=== PATIENT | female | born 1985 | race Two or more races ===

== ENCOUNTER 2024-07-03 15:06 | Emergency (ER) | payer MEDICAID, OTHER ==
[~2024-07-03] VITALS: Ht 152.4 cm; Wt 76.2 kg
[2024-07-03 15:39] VITALS: BP 139/91; PULSE 89; RESP 18; TEMP 98.4; O2SAT 96
--- NOTE | 2024-07-03 15:50 | ED.PDOC ---
SOB-HPI HPI Comments Portions of this chart may have been created with an modal fluency direct voice recognition software. Occasional wrong-word or "sound-alike" substitutions may have occurred due to the inherent limitations of voice recognition software. Please read the chart carefully and recognize, using context, where these substitutions have occurred. Pleasant 38-year-old female presents with a chief complaint of URI symptoms x4 days She complains of productive cough with yellow phlegm, intermittent headache sore throat and intermittent chills. Able to get minimal relief with [id number] cough and cold medications Started Also with Therapies tried COVID-19 exposure: None that they know of COVID testing People at home Denies fevers chills night sweats unintentional weight loss Denies persistent chest pain, shortness of breath, leg swelling Denies history of asthma nor any breathing conditions Denies history of pneumonia Denies recent international travel Chief Complaint: Flu like Time Seen by MD: 15:28 Reviewed notes: Nurses Notes, Medications, Allergies Information Source: Patient Mode of Arrival: Ambulatory X-Ray, Labs, Meds, VS Vital Signs Date Time Temp Pulse Resp B/P (MAP) Pulse Ox O2 Delivery O2 Flow Rate FiO2 07/03/24 15:39 98.4 89 18 139/91 (107) 96 98.4 07/03/24 15:39 89 18 96 Room Air 07/03/24 15:18 98.4 89 18 139/91 (107) 96 Current Medications Medications (Trade) Dose Ordered Sig/Angelica Route Start Time Stop Time Status Last Admin Dexamethasone Sodium Phosphate (Decadron Injection) 10 mg ONCE ONCE IM 07/03/24 16:45 07/03/24 16:46 DC 07/03/24 16:56 Promethazine HCl/ Codeine (Phenergan W/ Codeine) 5 ml ONCE ONCE PO 07/03/24 16:45 07/03/24 16:46 DC 07/03/24 16:52 Departure 1 Departure Time of Disposition: 17:17 Impression: Primary Impression: Bronchitis Disposition: 01 HOME / SELF CARE / HOMELESS Condition: Stable e-Prescriptions Acetaminophen (Acetaminophen) 500 Mg Tab 500 MG PO Q6HPRN PRN for 10 Days, #40 TAB 0 Refills Prov: ARDEN MARTINEZ NP 07/03/24 Promethazine-Dm (Promethazine Dm 6.25-15 mg/5Ml) 1 Muna Muna 5 ML PO TIDPRN PRN for 10 Days, #150 ML 0 Refills Prov: ARDEN MARTINEZ NP 07/03/24 Azithromycin (Azithromycin) 250 Mg Tab 250 MG PO DAILY MDD 500 for 5 Days, #6 TAB 0 Refills 2 TABLETS ORALLY ON DAY ONE, THEN 1 TABLET ORALLY DAILY FOR 4 DAYS Prov: ARDEN MARTINEZ NP 07/03/24 Discharged With: Self ARDEN MARTINEZ [employer] Jul 03, 2024 15:50
--- NOTE | 2024-07-03 16:18 | DVH ---
EXAM: XY CHEST TWO VIEWS ROUTINE CLINICAL HISTORY: Cough COMPARISON: None TECHNIQUE: Frontal and lateral view of the chest was obtained FINDINGS: Lines and Tubes: None Lungs: No focal consolidation. Pleura: No effusion. No pneumothorax. Cardiomediastinal contours: Unremarkable Bones: No acute osseous abnormality. IMPRESSION: No acute cardiopulmonary disease.
[2024-07-03] MEDS: PROMETHAZINE W/CODEINE 5 ML ORAL SYRUP PO ONE (16:52)
[2024-07-03] MEDS: DexAMETHasone SOD PHOS 10MG/1ML VIAL INJ IM ONE (16:56)
[2024-07-03] MEDS ORDERED: PROM1SOL4 PO (17:18)
[2024-07-03] MEDS ORDERED: ACET500T58 PO (17:18)
[2024-07-03] MEDS ORDERED: AZIT-43 PO (17:18)
== END 2024-07-03 17:22 | disposition home or self-care (01) ==
LOC: ER 15:06
DX: J40 Bronchitis, not specified as acute or chronic (principal); Z98.890 Other specified postprocedural states; Z79.899 Other long term (current) drug therapy
CPT/HCPCS: 71046; 96372; 99283; J1100